=== PATIENT | female | born 1950 | race Caucasian/White ===

== ENCOUNTER 2021-03-10 07:41 | Observation (INO) ==
[2021-03-10] MEDS ORDERED: LR 1000 ML IV 1,000 ML IV ONE (08:03)
[2021-03-10] MEDS ORDERED: ANCEF 1 GRAM IV PREMIX* 2 G/100 ML BAG IV ONE (08:03)
[2021-03-10] MEDS ORDERED: NAROPIN 0.75% EPI ONE (08:38)
[2021-03-10] MEDS ORDERED: DUONEB 0.5 MG/3 MG (3 mL) NEB ONE ×2 (08:56→09:03)
[2021-03-10 09:00] VITALS: BMI 37.5
[2021-03-10] MEDS ORDERED: MARCAINE 0.25% INJ ONE (09:39)
[2021-03-10] MEDS ORDERED: BRIDION ONE (09:53)
[2021-03-10] MEDS ORDERED: OFIRMEV IV 1000 MG VIAL 1,000 MG/100 ML VIAL IV ONE (09:53)
[2021-03-10] MEDS ORDERED: FENTANYL VIAL INJ 100 mcg ONE ×2 (09:53→11:18)
[2021-03-10] MEDS ORDERED: ZEMURON 50 MG VIAL ONE (09:54)
[2021-03-10] MEDS ORDERED: TORADOL 30 MG VIAL ONE (10:05)
[2021-03-10] MEDS ORDERED: ZOFRAN INJ 4 MG VIAL ONE (10:05)
[2021-03-10] MEDS ORDERED: VERSED ONE (10:05)
[2021-03-10] MEDS ORDERED: DIPRIVAN VIAL ONE (10:05)
[2021-03-10] MEDS ORDERED: SUPRANE ONE (10:05)
[2021-03-10] MEDS ORDERED: XYLOCAINE 2 % (PLAIN) ONE (10:05)
[2021-03-10] MEDS ORDERED: DILAUDID INJ ONE (11:16)
[2021-03-10] MEDS ORDERED: NS 1000 ML 1,000 ML ONE (12:12)
[2021-03-10] MEDS ORDERED: DILAUDID INJ IVP PRN ×2 (13:22→13:33)
[2021-03-10] MEDS ORDERED: ZOFRAN INJ 4 MG VIAL IVP PRN ×2 (13:22→13:33)
[2021-03-10] MEDS ORDERED: PHENERGAN INJ 25 MG IM PRN ×2 (13:22→13:33)
[2021-03-10] MEDS ORDERED: BENADRYL INJ 50 MG VIAL IVP PRN ×2 (13:22→13:33)
[2021-03-10] MEDS ORDERED: REGLAN INJ 10 MG VIAL IVP PRN ×2 (13:22→13:33)
[2021-03-10] MEDS ORDERED: BARHEMSYS INJ IVP PRN ×2 (13:22→13:33)
[2021-03-10] MEDS: DILAUDID INJ IVP PRN ×3 (13:29→13:38)
[2021-03-10] MEDS ORDERED: TYLENOL 325 MG TAB PO PRN (14:03)
[2021-03-10] MEDS: ZOFRAN INJ 4 MG VIAL IVP PRN (18:05)
[2021-03-10] MEDS: COLACE CAP 100 MG PO SCH (20:20)
[2021-03-11] MEDS: ROXICODONE TAB 5 MG PO PRN ×3 (04:49→22:14)
[2021-03-11 06:42] LABS: BLOOD UREA NITROGEN 12 mg/dL (7-18); CALCIUM 7.6 mg/dL (8.5-10.1); CARBON DIOXIDE 26.7 mmol/L (21-32); CHLORIDE 109 mmol/L (98-107); CREATININE 0.56 mg/dL (0.55-1.02); SODIUM 143 mmol/L (136-145); eGFR NON BLACK RACES > 60 (>60)
[2021-03-11] MEDS: LOVENOX INJ 40 MG SYR SC SCH (08:14)
[2021-03-11] MEDS: DILAUDID INJ IVP PRN ×3 (11:26→20:30)
[2021-03-11] MEDS ORDERED: TORADOL 30 MG VIAL IVP ONE (11:44)
--- NOTE | 2021-03-11 12:25 | NOTE.SOAP ---
Soap Note Note for Day of Date of Exam: 03/11/21 Subjective Data Subjective Data: Mrs. Burns is a 70 year old female who is s/p right total ankle replacement, dos was 03/10. The dressings are c/d/i with no strike through and elevated over 2 pillows. She does relate her pain is 8-9 out of 10. She has only taken roxycodone for the pain. She has been NWB. She denies any f/c/n/v/sob/calf pain. Objective Data Objective Data: Right foot with the dressings c/d/i/ with no strike through. Patient is able to move her toes x 5. She has sensation to the distal digits x 5 She has no calf pain. Assessment Assessment: Mrs. Burns is a 70 year old female who is s/p right TAR, dos was 03/10. Pain was not controlled when I saw her this am. She only received the gege and did not take any dilaudid. NO strike through and the dressing are intact. She is with VSS and NAD. Plan Plan: Keep the dressings clean, dry and intact. NWB on the right. Elevate over 2 pillows. PT consulted, appreciate recs. I agree that she would benefit from home health PT. Prescription for wheel chair in the chart. Rx's are in the chart. I think she would benefit from one more night of staying here. Patient was given 0.5 mg of Diluadid One time order of 30 mg of Toradol. Will monitor. Please do not hesitate to contact me with questions or concerns. Johnnie Pringle, [facility] [phone]
[2021-03-11] MEDS: COLACE CAP 100 MG PO SCH (20:03)
[2021-03-11] MEDS ORDERED: DILAUDID INJ IVP PRN (21:25)
[2021-03-11] MEDS: ZYVOX 600MG IV 600 MG/300 ML BAG IV SCH (22:14)
[2021-03-11 23:58] LABS: BILIRUBIN,URINE NEGATIVE (NEGATIVE); BLOOD/HEMOGLOBIN,URINE NEGATIVE (NEGATIVE); GLUCOSE, URINE NEGATIVE (NEGATIVE); KETONES,URINE NEGATIVE (NEGATIVE); LEUKOCYTE ESTERASE ,URINE NEGATIVE (NEGATIVE); NITRITES,URINE NEGATIVE (NEGATIVE); PROTEIN,URINE NEGATIVE (NEGATIVE); UROBILINOGEN,URINE NORMAL (NORMAL)
[2021-03-11 23:59] LABS: APPEARANCE,URINE CLEAR (CLEAR); COLOR,URINE YELLOW (YELLOW)
--- NOTE | 2021-03-12 01:46 | RAD ---
HISTORYCOVID, PT HAD [place] VACCINESTUDYCHEST, 1 [id number]/2021FINDINGSThe trachea is midline. The cardiac silhouette is unremarkable . The lungs are clear without focal infiltrate or effusion. Pulmonary vasculature is within normal limits. No pneumothorax. The bony thorax is unremarkable. Old healed right rib fractures.IMPRESSIONNo acute cardiopulmonary disease.Electronically signed by: Miguel Angel Silverman (Mar 12, 2021 01:44:43)
[2021-03-12 05:26] LABS: BASOPHILS % (AUTO) 0.4 % (0.2-1.0); EOSINOPHILS # (AUTO) 0.2 x10^3/uL (0.0-0.2); EOSINOPHILS % (AUTO) 2.4 % (0.9-2.9); HEMATOCRIT 28.8 % (36.0-47.0); LYMPHOCYTES # (AUTO) 0.7 X10^3/uL (1.3-2.9); LYMPHOCYTES % (AUTO) 10.1 % (21.0-51.0); MEAN CORPUSCULAR HEMOGLOBIN 32.8 pg (27.0-34.0); MEAN CORPUSCULAR HGB CONC 34.7 g/dL (33.0-35.0); MEAN CORPUSCULAR VOLUME 94.6 fL (80.0-100.0); MONOCYTES # (AUTO) 0.8 x10^3/uL (0.3-0.8); MONOCYTES % (AUTO) 10.9 % (0.0-13.0); NEUTROPHILS # (AUTO) 5.3 x10^3/uL (2.2-4.8); NEUTROPHILS % (AUTO) 76.2 % (42.0-75.0); PLATELET COUNT 149 X10^3/uL (150.0-450.0); RED BLOOD COUNT 3.05 X10^6/uL (3.5-5.4)
[2021-03-12 05:29] LABS: ALANINE AMINOTRANSFERASE 28 Units/L (12-78); ALBUMIN 2.3 g/dL (3.4-5.0); ALKALINE PHOSPHATASE 88 Units/L (46-116); ASPARTATE AMINO TRANSFERASE 27 Units/L (15-37); BLOOD UREA NITROGEN 11 mg/dL (7-18); CALCIUM 7.9 mg/dL (8.5-10.1); CARBON DIOXIDE 28.1 mmol/L (21-32); CHLORIDE 105 mmol/L (98-107); COR CA(FOR HYPOALB) 9.3 mg/dL (8.5-10.1); CREATININE 0.58 mg/dL (0.55-1.02); SODIUM 139 mmol/L (136-145); TOTAL PROTEIN 5.4 g/dL (6.4-8.2); eGFR NON BLACK RACES > 60 (>60)
[2021-03-12] MEDS: LOVENOX INJ 40 MG SYR SC SCH (08:34)
[2021-03-12] MEDS: ZYVOX 600MG IV 600 MG/300 ML BAG IV SCH (08:36)
--- NOTE | 2021-03-12 09:28 | DR.CONSULT ---
Consult - Consultation for Day of: Date: 03/11/21 - Chief Complaint Chief Complaint: s/p RLE surgical procedure - History of Present Illness History of Present Illness: Patient is a 70 year old white female with an EXTENSIVE medical history. Patient underwent ORIF of RLE ext due to an injury dating back to 1976 with complications; patient was admitted due to uncontrolled pain. [facility]. No other mejor concerns at present. - Past Medical History Past Medical History: Anemia, Arthritis, GERD, Headaches, Liver Disease, PUD (multiple auto immune disorders) - Past Surgical History Surgical History: Cholecystectomy, Hysterectomy (14 + surgeries) - Family History Family Medical History: Diabetes Mellitus, Sudden Cardiac , Hypertension - Social History Does patient currently use any type of tobacco product: No Have you used tobacco products in the last 12 months: No Type of Tobacco Use: None Does any household member use tobacco: No Alcohol Use: None Drug Use: None - Medications Home Medications: formoterol [From Dulera] Adverse Reaction (Mild, Verified 03/10/21 08:14) hand tremors metoclopramide [From Reglan] Adverse Reaction (Mild, Verified 03/10/21 08:14) hand tremors mometasone furoate [From Dulera] Adverse Reaction (Mild, Verified 03/10/21 08:14) hand tremors tramadol Adverse Reaction (Mild, Verified 03/10/21 08:14) sweating CONTINUE taking the following medications albuterol sulfate 2.5 mg INHALATION Q6H 03/10/21 [History] ammonium lactate 1 applic TOPICAL BID 03/10/21 [History] denosumab [Prolia] 60 mg SUBCUT [id number] 03/10/21 [History] diltiazem HCl 120 mg PO DAILY 03/10/21 [History] ezetimibe 10 mg PO DAILY 03/10/21 [History] hylan g-f 20 [Synvisc] 16 mg INTRA-ARTICULAR PRN PRN 03/10/21 [History] levothyroxine 175 mcg PO DAILY 03/10/21 [History] montelukast 10 mg PO QHS 03/10/21 [History] omeprazole 40 mg PO QAM 03/10/21 [History] ursodiol 500 mg PO TID 03/10/21 [History] - Review of Systems Constitutional: See HPI Eyes: See HPI ENT: See HPI Respiratory: See HPI Cardiovascular: See HPI Gastrointestinal: See HPI Genitourinary: See HPI Musculoskeletal: See HPI Skin: See HPI Neurological: See HPI - Physical Exam Vital Signs: Temperature 99.9 F Pulse Rate [Left Brachial] 90 Pulse Rate 71 Respiratory Rate 20 Blood Pressure [Left Arm] 123/59 Blood Pressure 110/67 O2 Sat by Pulse Oximetry 96 Oriented: Normal Eyes: Normal Ear: Normal Nose: Normal Throat: Normal Respiratory: Clear Throughout Cardiovascular: Normal : Normal Auscultation: Bowel Sounds: Normal Palpation: Normal Tenderness: Normal Skin: Normal Musculoskeletal: Right (in splint, normal color, temp, no unexpected pain), Leg Psychiatric: Normal Mood Description: Calm Affect: Normal Speech Pattern: Clear - Plan Plan: Pain control. We will be glad to assist with any medical needs. No major concerns at this time with patients medical needs. - Allergies Allergies/Adverse Reactions: Allergies Allergy/AdvReac Type Severity Reaction Status Date / Time formoterol [From Dulera] AdvReac Mild hand Verified 03/10/21 08:14 tremors metoclopramide [From Reglan] AdvReac Mild hand Verified 03/10/21 08:14 tremors mometasone furoate AdvReac Mild hand Verified 03/10/21 08:14 [From Dulera] tremors tramadol AdvReac Mild sweating Verified 03/10/21 08:14
[2021-03-12] MEDS ORDERED: ZOFRAN INJ 4 MG VIAL ONE (09:56)
[2021-03-12] MEDS: ZOFRAN INJ 4 MG VIAL IVP PRN (10:00)
[2021-03-12] MEDS: ROXICODONE TAB 5 MG PO PRN ×2 (10:11→14:25)
[2021-03-12 12:11] VITALS: BP 107/57
--- NOTE | 2021-03-12 19:06 | NOTE.SOAP ---
Soap Note Note for Day of Date of Exam: 03/12/21 Subjective Data Subjective Data: Mrs. Burns is a 70 year old female who is s/p right total ankle replacement, dos was 03/10. The dressings are c/d/i with no strike through and elevated over 2 pillows. She does relate her pain is 1/10 this morning. Pain is better controlled today. She has been NWB. Patient reports she did have some nausea and vomiting this morning which she relates it is related to her CREST syndrome. She also relates that when she had surgery in the past which caused the same symptoms but she felt better a day latera. She denies any f/c/sob/calf pain. Objective Data Objective Data: Right foot with the dressings c/d/i. No strike through. Patient is able to move her toes x 5. She has sensation to the distal digits x 5 She has no calf pain. Assessment Assessment: Mrs. Burns is a 70 year old female who is s/p right TAR, dos was 03/10. Pain is controlled today. No strike through and the dressing are intact. She is with VSS and NAD.
--- NOTE | 2021-03-18 17:55 | W.DIS.FURT ---
Discharge Plan - Discharge Plan Hospital Course: As stated in the HPI, the atient is a 70 year old white female with an EXTENSIVE medical history. Patient underwent ORIF of RLE ext due to an injury dating back to 1976 with complications. The patient was hospitalized overnight for pain control. Subsequently, the patient did show improvement in symptoms during the course of this hospitalization. The patient was felt stable for discharge and was discharged home to follow up with PCP in the outpatient setting. Disposition: [facility] Condition: Good Health Concerns: Post Hospitalization: new medications and changes needed to prevent readmission or further decline. Pt educated and given instructions on all concerns. Care Plan Goals: Problem: Pain/Alteration in Comfort Goal: Improve/ Resolve Pain; Achieve Pain Tolerance Instructions: Take pain medications as prescribed. Contact your primary care provider if your pain is unrelieved or worsens. Follow up with primary care provider as directed. Plan of Treatment: Continue with present treatment and follow up plan. Pt is to keep follow up appointment as instructed and take medications as ordered. Assessment: S/P ORIF RLE. Stable no acute distress noted at discharge. Prescriptions: No Action albuterol sulfate 2.5 mg /3 mL (0.083 %) Solution For Nebulization 2.5 mg inhalation Q6H ammonium lactate 12 % Lotion 1 applic TOPICAL BID diltiazem HCl 120 mg Capsule,Extended Release 12 Hr 120 mg PO DAILY ezetimibe 10 mg Tablet 10 mg PO DAILY levothyroxine 175 mcg Tablet 175 mcg PO DAILY montelukast 10 mg Tablet 10 mg PO QHS omeprazole 40 mg Capsule,Delayed Release(Dr/Ec) 40 mg PO QAM Prolia 60 mg/mL Syringe 60 mg SUBCUT [id number] Synvisc 16 mg/2 mL Syringe 16 mg INTRA-ARTICULAR PRN PRN ursodiol 500 mg Tablet 500 mg PO TID - Follow ups/Referrals Follow ups/Referrals: Dr. Toñito Crockett [Other] - 1 WEEK Rob Howell [CONSULTING PHYSICIAN] - 03/15/21 1:00 pm - Instructions Instructions: Ankle Replacement, Care After, Enoxaparin injection, Chronic Pain, Adult, How to Use a Walker, Managing Your Hypertension, How and Where to Give Subcutaneous Enoxaparin Injections, Venous Thromboembolism Prevention Additional Instructions: Follow written discharge instructions given by Dr. Howell. Keep dressing clean and dry do not remove. Non weight bearing on right leg use wheel chair. Rx: Zofran 8mg PO Q8H PRN, Oxycodone 10/325 mg PO Q4H PRN and Lovenox 40 Sub-q daily. Forms: Precautions for COVID19, [facility], Patient Portal, Social Distancing Print Language: KITTITIAN
== END 2021-03-12 14:35 | disposition home health service (06) ==
LOC: MED/SURG 07:41 → SURG1 07:41 → MED/SURG 14:26
PROVIDERS: ADMIT Internal Medicine; ATTEND Podiatrist
DX: M21.861 Other specified acquired deformities of right lower leg; S93.491A Sprain of other ligament of right ankle, initial encounter; X58.XXXA Exposure to other specified factors, initial encounter; M12.571 Traumatic arthropathy, right ankle and foot